=== PATIENT | male | born 1940 | race Caucasian/White ===

== ENCOUNTER 2018-02-18 11:33 | Inpatient (IN) ==
--- NOTE | 2018-02-18 12:24 | ED ---
HPI General Chief Complaint: Syncope Stated Complaint: Evac/Respiratory Time Seen by Provider: 02/18/18 11:53 Source: patient, EMS, RN notes reviewed and old records reviewed Mode of arrival: EMS Limitations: no limitations History of Present Illness HPI Narrative: 77 year old male presents to the emergency department via EMS for evaluation of dizziness, hypotension, low oxygen saturations, possible syncope. Patient was at cardiac rehab. He states that he woke up this morning burping so he did not take his morning medications or eat. He went to cardiac rehab and felt more weak than normal. He lifted weights and then went on the treadmill. While on the treadmill, he felt weak and tired so he quit. He went to the locker room where he felt dizzy and more weak. He vomited. EMS states that he did not have a syncopal episode, but the patient is unsure. The staff at cardiac rehab gave him glucose pills but did not check his glucose. He does not have any history of diabetes. When EMS arrived, he was hypotensive with bp 70s/40s and hypoxic at 86% on room air. The patient was given NS 500 ml bolus via EMS. Patient has history of pacemaker, [place], CAD, hypertension, CHF. He denies any headache, visual changes, chest pain, SOB. He denies any weakness at this time. Moderate severity. 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 complaint: dizziness, lightheadedness, near syncope and other (?syncope) Onset (ago): minute(s) Timing: gradual onset Description: lightheadedness History of similar episodes: No History of trauma: No Severity: moderate Relieving factors: rehydration Exacerbating factors: exertion Associated symptoms: denies other symptoms Related Data Home Medications Medication Instructions Recorded Confirmed amiodarone 200 mg PO DAILY 02/18/18 02/18/18 aspirin 81 mg PO DAILY 02/18/18 02/18/18 carvedilol 25 mg PO BID 02/18/18 02/18/18 enalapril maleate 20 mg PO BID 02/18/18 02/18/18 pravastatin 40 mg PO DAILY 02/18/18 02/18/18 Allergies Allergy/AdvReac Type Severity Reaction Status Date / Time gemfibrozil Allergy Severe hives Verified 02/18/18 15:32 Review of Systems ROS: all other systems reviewed are negative [facility] Medical History Medical History High cholesterol (Acute) Pacemaker (Acute) Surgical History Surgical History Stented coronary artery (Acute) Social History Social History Substance History: No History of Abuse Smoking Status: Never smoker How Often Do You Have a Drink Containing Alcohol: Never Recent Travel in [facility] within the Last 8 Weeks: No Recent Out of Country Travel within the Last 8 Weeks: No Immunization History Tetanus Immunization: Unsure Exam Narrative Exam Narrative: GENERAL: Well-nourished, well-developed male patient, ambulatory. Afebrile. SKIN: Focused skin assessment warm/dry. HEAD: Normocephalic. Atraumatic. ENT: Mucosa pink and moist. No erythema or exudates. No uvular edema. No uvular , palatal, or tonsillar deviation. Airway patent. Nasal turbinates appear normal without nasal blood, purulent drainage or septal hematoma. Bilateral tympanic membranes clear without erythema or perforation. EYES: No scleral icterus. No injection or drainage. PERRLA. NECK: Supple, trachea midline. No JVD or lymphadenopathy. CARDIOVASCULAR: Regular rate and rhythm without murmurs, gallops, or rubs. Bilateral radial and pedal pulses are 2+ RESPIRATORY: Breath sounds equal bilaterally. No accessory muscle use. Lung sounds are clear to auscultation GASTROINTESTINAL: Abdomen soft, non-tender, nondistended. MUSCULOSKELETAL: No cyanosis, or edema. Bilateral upper and lower extremity strength 5/5. All extremities are neurovascularly intact BACK: Nontender without obvious deformity. No CVA tenderness. NEUROLOGICAL: Awake and alert. Cranial nerves II through XII intact. Motor and sensory grossly within normal limits. Five out of 5 muscle strength in all muscle groups. Normal speech. Finger to nose is normal bilaterally. Heel to tobar is normal bilaterally. Course Initial Documented Vital Signs Temperature 97.5 F L 02/18/18 11:59 Pulse Rate 60 02/18/18 11:59 Respiratory Rate 19 02/18/18 11:59 Blood Pressure 119/54 L 02/18/18 11:59 Pulse Oximetry 96 02/18/18 11:59 Last Documented Vital Signs Temperature 97.5 F L 02/18/18 11:59 Pulse Rate 61 02/18/18 16:25 Respiratory Rate 19 02/18/18 16:25 Blood Pressure 124/59 L 02/18/18 16:25 Pulse Oximetry 97 02/18/18 16:25 Medical Decision Making STEFAN Attestation STEFAN supervised visit: Yes Attestation: I, Dr. Chambers, have reviewed the advance practice practitioner's documentation and am in agreement, met with the patient face to face, made the diagnosis, and the medical decision making was done by me. *My assessment and Findings: Patient seen and evaluated with PA, please see PA notes for further details. EKG shows a paced rhythm, otherwise did not show any signs of significant dysrhythmias currently. Lab work shows elevated BUN and creatinine. Chest x-ray did not show any signs of acute pulmonary processes. D-dimer is elevated as well and PE study has been ordered for the patient. He was fairly hypotensive on initial exam, IV fluids have been given. And at this point, considering his cardiac history, plan would be to admit him for further treatment. MDM Narrative Medical decision making narrative: 77-year-old male presents to the emergency department from cardiac rehab after lightheadedness, hypotension, hypoxia, possible syncope. He does state that he feels much better at this time. He is currently on 4 L O2 nasal cannula. EKG, CBC, CMP, magnesium, CK, troponin, PTT , PT/INR, d-dimer, UA, chest x-ray, CT the brain are ordered and pending. Patient is given Zofran 4 mg IV, NS 500 ml bolus. EKG shows AV paced rhythm, HR 60. CBC shows normal WBC of 7.7, Hgb of 13.4, Hct of 39.8, neut % of 81.5. CMP shows elevated BUN of 31, creatinine of 2.13. I don't have any recent labs to compare this with, hyperglycemia of 151. Magnesium is 1.9. CK is 57. Troponin is 0.05. BNP is 108. PTT is 22.8. PT/ INR is 12.1/1.2. D-dimer is 1.06. UA is negative for acute infection. Chest x -ray shows no acute cardiopulmonary process. CT of the brain is unremarkable. VQ scan is ordered and is negative. Patient will be admitted. Dr. Khan accepted admission. Medical Screen Exam Complete: Yes Emergency Medical Condition: Yes Differential Diagnosis Differential Diagnosis: ACS vs. dehydration vs. electrolyte abnormality vs. pneumonia vs. CHF exacerbation vs. sepsis vs. CVA vs. TIA vs. PE Medical Records Medical records reviewed: Yes I reviewed the patient's medical records. Lab Data Lab results reviewed: Yes I reviewed the patient's lab results. Result diagrams: 02/18/18 12:20 02/18/18 12:20 Lab Results 02/18/18 02/18/18 02/18/18 Range/Units 12:20 12:20 12:20 WBC 7.7 (4.0-11.0) th/mm3 RBC 4.05 L (4.50-5.90) mil/mm3 Hgb 13.4 (13.0-17.0) gm/dL Hct 39.8 (39.0-51.0) % MCV 98.4 (80.0-100.0) fL MCH 33.1 (27.0-34.0) pg MCHC 33.6 (32.0-36.0) % RDW 13.4 (11.6-17.2) % Plt Count 188 (150-450) th/mm3 MPV 9.2 (7.0-11.0) fL Neut % (Auto) 81.5 H (16.0-70.0) % Lymph % (Auto) 13.2 (9.0-44.0) % [place] % (Auto) 4.6 (0.0-8.0) % Eos % (Auto) 0.3 (0.0-4.0) % Baso % (Auto) 0.4 (0.0-2.0) % Neut # (Auto) 6.3 (1.8-7.7) th/mm3 Lymph # (Auto) 1.0 (1.0-4.8) th/mm3 [place] # (Auto) 0.4 (0.0-0.9) th/mm3 Eos # (Auto) 0.0 (0.0-0.4) th/mm3 Baso # (Auto) 0.0 (0.0-0.2) th/mm3 WBC Differential . Differential Comment Auto diff final PT 12.1 H (9.8-11.6) sec INR 1.2 Ratio APTT 22.8 L (24.3-30.1) sec D-Dimer Quant (PE/DVT) (0.00-0.50) mg/L FEU Sodium 142 (136-145) meq/L Potassium 4.5 (3.5-5.1) meq/L Chloride 111 H (98-107) meq/L Carbon Dioxide 22.3 (21.0-32.0) meq/L Anion Gap 9 (5-15) meq/L BUN 31 H (7-18) mg/dL Creatinine 2.13 H (0.60-1.30) mg/dL Estimated GFR 30 L (>89) mL/min Random Glucose 151 H (74-106) mg/dL Calcium 7.6 L (8.5-10.1) mg/dL Magnesium 1.9 (1.5-2.5) mg/dL Total Bilirubin 0.6 (0.2-1.0) mg/dL AST 20 (15-37) U/L ALT 26 (12-78) U/L Alkaline Phosphatase 62 (45-117) U/L Total Creatine Kinase 57 (39-308) U/L Troponin I 0.05 (0.02-0.05) ng/mL B-Natriuretic Peptide (0-100) pg/mL Total Protein 6.2 L (6.4-8.2) g/dL Albumin 3.1 L (3.4-5.0) g/dL Urine Color (Yellw/Straw) Urine Clarity (Clear) Urine pH (5.0-8.5) Ur Specific [place] (1.002-1.035) Urine Protein (Neg-Trace) mg/dL Urine Glucose (UA) (Negative) mg/dL Urine Ketones (Negative) mg/dL Urine Occult Blood (Negative) Urine Nitrate (Negative) Urine Bilirubin (Negative) Urine Urobilinogen (Less than 2) mg/dL Ur Leukocyte Esterase (Negative) Urine RBC (0-3) /hpf Urine WBC (0-5) /hpf Ur Squamous Epith Cells (0-5) /hpf Hyaline Casts (0-3) /lpf Urine Mucus (Occasional) /lpf Micro UA Comment Ur Microscopic Review Urine Culture Comments 02/18/18 02/18/18 02/18/18 Range/Units 12:20 12:20 12:32 WBC (4.0-11.0) th/mm3 RBC (4.50-5.90) mil/mm3 Hgb (13.0-17.0) gm/dL Hct (39.0-51.0) % MCV (80.0-100.0) fL MCH (27.0-34.0) pg MCHC (32.0-36.0) % RDW (11.6-17.2) % Plt Count (150-450) th/mm3 MPV (7.0-11.0) fL Neut % (Auto) (16.0-70.0) % Lymph % (Auto) (9.0-44.0) % [place] % (Auto) (0.0-8.0) % Eos % (Auto) (0.0-4.0) % Baso % (Auto) (0.0-2.0) % Neut # (Auto) (1.8-7.7) th/mm3 Lymph # (Auto) (1.0-4.8) th/mm3 [place] # (Auto) (0.0-0.9) th/mm3 Eos # (Auto) (0.0-0.4) th/mm3 Baso # (Auto) (0.0-0.2) th/mm3 WBC Differential Differential Comment PT (9.8-11.6) sec INR Ratio APTT (24.3-30.1) sec D-Dimer Quant (PE/DVT) 1.06 H (0.00-0.50) mg/L FEU Sodium (136-145) meq/L Potassium (3.5-5.1) meq/L Chloride (98-107) meq/L Carbon Dioxide (21.0-32.0) meq/L Anion Gap (5-15) meq/L BUN (7-18) mg/dL Creatinine (0.60-1.30) mg/dL Estimated GFR (>89) mL/min Random Glucose (74-106) mg/dL Calcium (8.5-10.1) mg/dL Magnesium (1.5-2.5) mg/dL Total Bilirubin (0.2-1.0) mg/dL AST (15-37) U/L ALT (12-78) U/L Alkaline Phosphatase (45-117) U/L Total Creatine Kinase (39-308) U/L Troponin I (0.02-0.05) ng/mL B-Natriuretic Peptide 108 H (0-100) pg/mL Total Protein (6.4-8.2) g/dL Albumin (3.4-5.0) g/dL Urine Color Yellow (Yellw/Straw) Urine Clarity Hazy H (Clear) Urine pH 6.0 (5.0-8.5) Ur Specific [place] 1.019 (1.002-1.035) Urine Protein 30 H (Neg-Trace) mg/dL Urine Glucose (UA) Negative (Negative) mg/dL Urine Ketones Negative (Negative) mg/dL Urine Occult Blood Negative (Negative) Urine Nitrate Negative (Negative) Urine Bilirubin Negative (Negative) Urine Urobilinogen 2.0 H (Less than 2) mg/dL Ur Leukocyte Esterase Negative (Negative) Urine RBC 2 (0-3) /hpf Urine WBC 2 (0-5) /hpf Ur Squamous Epith Cells <1 (0-5) /hpf Hyaline Casts 16 (0-3) /lpf Urine Mucus Few H (Occasional) /lpf Micro UA Comment Culture not ind Ur Microscopic Review Not Reportable Urine Culture Comments Culture not ind Imaging Data Attestation: I personally reviewed and interpreted this imaging study as follows : Radiologist's impression: Chest X-Ray 02/18/18 12:10 CONCLUSION: No acute cardiopulmonary process. Head CT 02/18/18 12:10 CONCLUSION: Unremarkable study. Pulmonary Perfusion Imaging 02/18/18 13:36 CONCLUSION: 1. Negative examination. Discharge Plan Discharge Disposition Patient Disposition: 30 Still Patient Discharge Details Diagnosis: Syncope Physicians Team ED Provider: Fanny Chambers ED Midlevel Provider: Milagro Mcgraw Primary Care Provider: Shola Koch Attending Provider: Marcio Khan Status ED Status: Admitted Observation Patient
[2018-02-18 12:39] LABS: Baso % (Auto) 0.4 % (0.0-2.0); Eos % (Auto) 0.3 % (0.0-4.0); Hematocrit 39.8 % (39.0-51.0); Hemoglobin 13.4 gm/dL (13.0-17.0); Lymph % (Auto) 13.2 % (9.0-44.0); Mean Corpuscular HGB Conc 33.6 % (32.0-36.0); Mean Corpuscular Hemoglobin 33.1 pg (27.0-34.0); Mean Corpuscular Volume 98.4 fL (80.0-100.0); Mean Platelet Volume 9.2 fL (7.0-11.0); Mono # (Auto) 0.4 th/mm3 (0.0-0.9); Mono % (Auto) 4.6 % (0.0-8.0); Neut # (Auto) 6.3 th/mm3 (1.8-7.7); Neut % (Auto) 81.5 % (16.0-70.0); Platelet Count 188 th/mm3 (150-450); Red Blood Count 4.05 mil/mm3 (4.50-5.90); Red Cell Distribution Width 13.4 % (11.6-17.2); White Blood Count 7.7 th/mm3 (4.0-11.0)
[2018-02-18 12:54] LABS: Activated Partial Thrombo Time 22.8 sec (24.3-30.1); INR 1.2 Ratio; Prothrombin Time 12.1 sec (9.8-11.6)
[2018-02-18 12:58] LABS: Alanine Aminotransferase 26 U/L (12-78)
[2018-02-18 13:04] LABS: Albumin 3.1 g/dL (3.4-5.0); Alkaline Phosphatase 62 U/L (45-117); Anion Gap 9 meq/L (5-15); Aspartate Aminotransferase 20 U/L (15-37); Blood Urea Nitrogen 31 mg/dL (7-18); Calcium 7.6 mg/dL (8.5-10.1); Carbon Dioxide 22.3 meq/L (21.0-32.0); Chloride 111 meq/L (98-107); Glomerular Filtration Rate 30 mL/min (>89); Glucose,Random 151 mg/dL (74-106); Magnesium 1.9 mg/dL (1.5-2.5); Potassium 4.5 meq/L (3.5-5.1); Sodium 142 meq/L (136-145); Total Protein 6.2 g/dL (6.4-8.2); Troponin I 0.05 ng/mL (0.02-0.05)
--- NOTE | 2018-02-18 13:04 | XR ---
EXAM DATE: 02/18/2018 12:47 PM EDT AGE/SEX: 77 years / Male INDICATIONS: Shortness of breath, dizziness, vomiting. CLINICAL DATA: This is the patient's initial encounter. Patient reports that signs and symptoms have been present for 1 day and indicates a pain score of 0/10. MEDICAL/SURGICAL HISTORY: . Myocardial infarctions. Pacemaker. Cardiac stents. COMPARISON: No prior exams available for comparison. FINDINGS: There is a pacing device seen in the left chest. The heart size is normal. The lungs are grossly rebecca r. CONCLUSION: No acute cardiopulmonary process. Electronically signed by: Mikey Ball MD 02/18/2018 1:03 PM EDT
[2018-02-18 13:06] LABS: Creatine Kinase 57 U/L (39-308)
[2018-02-18 13:06] LABS: Bilirubin,Urine Negative (Negative); Clarity,Urine Hazy (Clear); Color,Urine Yellow (Yellw/Straw); Glucose,Urine (UA) Negative (Negative); Hyaline Casts,Urine 16 /lpf (0-3); Leukocyte Esterase,Urine Negative (Negative); Mucus,Urine Few /lpf (Occasional); Nitrite,Urine Negative (Negative); Specific Gravity,Urine 1.019 (1.002-1.035); Squamous Epithelial Cell,Urine <1 /hpf (0-5)
--- NOTE | 2018-02-18 13:21 | CT ---
EXAM DATE: 02/18/2018 1:14 PM EDT AGE/SEX: 77 years / Male INDICATIONS: Syncopal episode while working out. Hypotensive. CLINICAL DATA: This is the patient's initial encounter. Patient reports that signs and symptoms have been present for 1 day and indicates a pain score of 0/10. MEDICAL/SURGICAL HISTORY: None. Coronary artery stent. Pacemaker. RADIATION DOSE: 34.77 CTDI (mGy) COMPARISON: No prior exams available for comparison. TECHNIQUE: CT of the head without contrast. Using automated exposure control and adjustment of the mA and/or kV according to patient size, radiation dose was kept as low as reasonably achievable to ob tain optimal diagnostic quality images. DICOM format image data is available electronically for revi ew and comparison. FINDINGS: There is no evidence for intracranial hemorrhage, mass effect, mass lesions, edema, or extr a-axial fluid collections. The visualized bony structures appear intact. The ventricles are normal size for the patient's age. There are no signs of acute infarction for technique. CONCLUSION: Unremarkable study. Electronically signed by: Christian Victoria MD 02/18/2018 1:20 PM EDT
[2018-02-18] MEDS ORDERED: Sodium Chlor 0.9% Inj 500 ML IV.SIG ONE (13:36)
--- NOTE | 2018-02-18 15:32 | NM ---
EXAM DATE: 02/18/2018 3:24 PM EDT AGE/SEX: 77 years / Male INDICATIONS: Dizziness, nausea and near syncope. Hypotensive and hypoxic. CLINICAL DATA: This is the patient's initial encounter. Patient reports that signs and symptoms have been present for 1 day and indicates a pain score of 0/10. MEDICAL/SURGICAL HISTORY: Hypercholesterolemia. Pacemaker. Coronary artery stent. COMPARISON: [facility], CHEST 1V SINGLE AP, 02/18/2018. . DOSE: 0.97 mCi Tc99m DTPA aerosol 8.8 mCi Tc99m MAA IV TECHNIQUE: Following five minutes of tidal breathing of DTPA aerosol, planar images of the lungs wer e performed in eight projections. The patient was then injected with MAA, and eight-view perfusion s can was performed. FINDINGS: There is a homogeneous pattern of aerosol delivery to the periphery of both lungs. No focal ventilat ory defects are seen. The perfusion lung scan demonstrates a homogenous pattern of uptake in both lungs. No segmental or s ubsegmental defects are seen. CONCLUSION: 1. Negative examination. Electronically signed by: Christian Victoria MD 02/18/2018 3:31 PM EDT
[2018-02-18] MEDS ORDERED: Acetaminophen 325 MG Tablet PO PRN (16:15)
--- NOTE | 2018-02-18 16:15 | P.HPIM ---
History of Present Illness Primary Care Physician: Shola Koch MD Chief Complaint: Syncope/near syncope History of Present Illness: Mr. Hidalgo is a pleasant 77 y/o WM with CHF, ischemic cardiomyopathy s/p AICD , paroxysmal A. fib, CKD, stage 3, CAD with hx of HI. He presented to the ED at [facility] on 02/18/18 for evaluation of dizziness, hypotension, low oxygen saturations , and possible syncope. This morning he had some increased belching and bloating sensation after waking up and he decided not to eat any breakfast and did not take his medications this morning. Patient went to cardiac rehab this morning despite feeling more weak than normal. He states that when he arrived at cardiac rehab his BP was 122/64. He lifted weights and then went on the treadmill for about 25 minutes but did feel weak and tired so he quit. He went to the locker room where he felt dizzy and more weak and he vomited. Pt thinks he may have passed out but it is not clear. When EMS arrived, he was reportedly hypotensive with BP in the 70s/40s and hypoxic at 86% on room air. The patient was given NS 500 ml bolus via EMS and started on supplemental O2 at 6L. Per the ED documentation, the EMS stated that he did not have a syncopal episode, but the patient is unsure. The staff at cardiac rehab gave him glucose pills but did not check his glucose. He does not have any history of diabetes, his last Hgb A1C was 5.3% in 10/2017. He denies any headache, visual changes, chest pain , SOB. He occasionally gets some lightheadedness. He has last approximately 45lbs over the last year to year in a half, intentionally, and his started on weight watchers. He typically does drink a lot of liquids but did not eat or drink anything today. He has not had any recent changes in his urination. He does report that he used Sildenafil last night. He typically uses that about once per month but has not reported any issues taking that in the past and his BP when he arrived at cardiac rehab was stable this morning per the pt. In the ED pt had a Head CT which was negative. His Cr seems to be a bit higher than baseline. He has not had much of anything to eat or drink to but pt reports that normally he drinks plenty of fluids. Pt was given another 500mL of NS in the ED. His BP is currently stable with systolic in the 110's. His O2 sats have remained stable but pt is on 4L of supplemental O2. He does not typically use any supplemental O2 at home. CXR in the ED with no acute cardiopulmonary process per radiologist reading. A VQ scan was performed in the ED which was negative as well. Past Medical Hx: CHF CKD, stage 3(Cr 1.63/BUN 19, GFR 96 in 10/2017) Ischemic Cardiomyopathy, ED 25-30% in 2013 CAD with hx of HI LBBB Paroxysmal A. fib Paroxysmal V. fib/V. tach Hx of colon polyps Past Surgical Hx: Dual chambered AICD placement in 2007 PTCA with stent placement in LAD in 2003 Angioplasty of RCA in 2002 Family Hx: Father at age 87, hx of prostate cancer Mother at age 78, HTN and CAD Sister at age 55, hx of brain CA Social Hx: Remote hx of tobacco use in high school Denies any alcohol or illicit drug use Pt is , he has three adult children Pt is originally from [place], moved to [place] in 1996. - Diagnosis (1) Syncope (2) Hypoxia (3) Hypotension (4) Acute renal failure superimposed on stage 3 chronic kidney disease (5) Ischemic cardiomyopathy (6) CHF (congestive heart failure) (7) CAD (coronary artery disease) (8) Paroxysmal A-fib Review of Systems Constitutional: Reports weight loss, Denies chills, Denies fever(s), Denies headache(s), Denies night sweats Eyes: Denies double vision, Denies loss of vision Ears, Nose, Mouth, and Throat: Denies dizziness, Denies headache(s), Denies sore throat Cardiovascular: Denies chest pain, Denies generalized swelling, Denies shortness of breath Respiratory: Reports cough, Denies shortness of breath, Denies wheezing Gastrointestinal: Reports belching, Reports bloating, Reports vomiting, Denies abdominal pain, Denies constipation, Denies loose stools Genitourinary: Denies urinary incontinence, Denies urinary urgency Musculoskeletal: Denies back pain, Denies joint pain Skin/Breast: Denies rash Neurologic: Denies confusion, Denies dizziness, Denies headache(s), Denies memory loss, Denies convulsions, Denies tingling/numbness/burning sensations Psychiatric: Denies anxiety, Denies depression PMFSH - History History Provided By: Patient - Medical History Medical History: Medical History (Last Updated 02/18/18 @ 11:58 by Arielle Stewart RN) High cholesterol Pacemaker - Surgical History Surgical History: Surgical History (Last Updated 02/18/18 @ 11:58 by Arielle Stewart RN) Stented coronary artery - Tobacco History Smoking Status: Never smoker - Alcohol History How Often Do You Have a Drink Containing Alcohol: Never - Substance Use History Substance History: No History of Abuse - Travel History Recent Travel in the [place] Within the Last 8 Weeks: No Recent Travel Out of the Country Within the Last 8 Weeks: No - Immunization History Tetanus Immunization: Unsure Medications and Allergies Allergies Allergy/AdvReac Type Severity Reaction Status Date / Time gemfibrozil Allergy Severe hives Verified 02/18/18 15:32 Home Medications Medication Instructions Recorded Confirmed Type amiodarone 200 mg PO DAILY 02/18/18 02/18/18 History aspirin 81 mg PO DAILY 02/18/18 02/18/18 History carvedilol 25 mg PO BID 02/18/18 02/18/18 History enalapril maleate 20 mg PO BID 02/18/18 02/18/18 History pravastatin 40 mg PO DAILY 02/18/18 02/18/18 History Exam Vital signs: Vital Signs 02/18/18 11:59 02/18/18 12:10 02/18/18 13:02 Temperature 97.5 F L Pulse Rate 60 60 Respiratory Rate 19 17 Blood Pressure 119/54 L 112/57 L Pulse Oximetry 96 95 95 Intake & Output 02/17/18 02/18/18 02/18/18 18:59 06:59 18:59 Weight 70.76 kg Narrative: GENERAL: NAD, AAOx3 SKIN: Warm and dry. HEENT: Atraumatic. Normocephalic. Pupils equal and round. No scleral icterus. No injection or drainage. No nasal bleeding or discharge. Mucous membranes pink and moist. NECK: Trachea midline. No JVD. CARDIO: Regular rate and rhythm. RESP: Rhonchi bilaterally which seemed to clear with coughing. Breath sounds equal bilaterally. ABD: +BS, soft, non-tender, nondistended. EXT: Extremities without clubbing, cyanosis, or edema. No obvious deformities. NEURO: Awake and alert. No obvious cranial nerve deficits. Motor grossly within normal limits. Five out of 5 muscle strength in the arms and legs. Normal speech. PSYCHIATRIC: Appropriate mood and affect; insight and judgment normal. Results - Labs CBC & Chem 7: 02/18/18 12:20 02/18/18 12:20 Labs: Short CBC 02/18/18 Range/Units 12:20 WBC 7.7 (4.0-11.0) th/mm3 Hgb 13.4 (13.0-17.0) gm/dL Hct 39.8 (39.0-51.0) % Plt Count 188 (150-450) th/mm3 BMP 02/18/18 12:20 Sodium 142 Potassium 4.5 Chloride 111 H Carbon Dioxide 22.3 BUN 31 H Creatinine 2.13 H Calcium 7.6 L Cardiac Enzymes 02/18/18 Range/Units 12:20 Total Creatine Kinase 57 (39-308) U/L Troponin I 0.05 (0.02-0.05) ng/mL Liver Function 02/18/18 Range/Units 12:20 Total Bilirubin 0.6 (0.2-1.0) mg/dL AST 20 (15-37) U/L ALT 26 (12-78) U/L Alkaline Phosphatase 62 (45-117) U/L Albumin 3.1 L (3.4-5.0) g/dL Urine 02/18/18 Range/Units 12:32 Urine Color Yellow (Yellw/Straw) Urine Clarity Hazy H (Clear) Urine pH 6.0 (5.0-8.5) Ur Specific [place] 1.019 (1.002-1.035) Urine Protein 30 H (Neg-Trace) mg/dL Urine Glucose (UA) Negative (Negative) mg/dL - Imaging Impressions Chest X-Ray 02/18/18 12:10 CONCLUSION: No acute cardiopulmonary process. Head CT 02/18/18 12:10 CONCLUSION: Unremarkable study. Pulmonary Perfusion Imaging 02/18/18 13:36 CONCLUSION: 1. Negative examination. Caprini VTE Risk Assessment Caprini VTE Risk Assessment: Moderate/High Risk (score >= 2) Caprini Risk Assessment Model: Point Value = 1 Point Value = 2 Point Value = 3 Point Value = 5 Age 41-60 Minor surgery BMI > 25 kg/m2 Swollen legs Varicose veins or History of unexplained or recurrent spontaneous Oral contraceptives or hormone replacement Sepsis (< 1 month) Serious lung disease, including pneumonia (< 1 month) Abnormal pulmonary function Acute myocardial infarction Congestive heart failure (< 1 month) History of inflammatory bowel disease Medical patient at bed rest Age 61-74 Arthroscopic surgery Major open surgery (> 45 min) Laparoscopic surgery (> 45 min) Malignancy Confined to bed (> 72 hours) Immobilizing plaster cast Central venous access Age >= 75 History of VTE Family history of VTE Factor V Leiden Prothrombin [id number] Lupus anticoagulant Anticardiolipin antibodies Elevated serum homocysteine Heparin-induced thrombocytopenia Other congenital or acquired thrombophilia Stroke (< 1 month) Elective arthroplasty Hip, pelvis, or leg fracture Acute spinal cord injury (< 1 month) Prophylaxis Regimen: Total Risk Factor Score Risk Level Prophylaxis Regimen 0-1 Low Early ambulation 2 Moderate Order ONE of the following: *Sequential Compression Device (SCD) *Heparin 5000 units SQ BID 3-4 Higher Order ONE of the following medications: *Heparin 5000 units SQ TID *Enoxaparin/Lovenox 40 mg SQ daily (WT < 150 kg, CrCl > 30 mL/min) *Enoxaparin/Lovenox 30 mg SQ daily (WT < 150 kg, CrCl > 10-29 mL/min) *Enoxaparin/Lovenox 30 mg SQ BID (WT < 150 kg, CrCl > 30 mL/min) AND/OR *Sequential Compression Device (SCD) 5 or more Highest Order ONE of the following medications: *Heparin 5000 units SQ TID (Preferred with Epidurals) *Enoxaparin/Lovenox 40 mg SQ daily (WT < 150 kg, CrCl > 30 mL/min) *Enoxaparin/Lovenox 30 mg SQ daily (WT < 150 kg, CrCl > 10-29 mL/min) *Enoxaparin/Lovenox 30 mg SQ BID (WT < 150 kg, CrCl > 30 mL/min) AND *Sequential Compression Device (SCD) Assessment and Plan - Assessment (1) Syncope Code(s): R55 - Syncope and collapse Status: Acute Plan: Syncope Hypotension - Pt is a 77 y/o WM with CHF, ischemic cardiomyopathy s/p AICD, paroxysmal A. fib, CKD, stage 3, CAD with hx of HI. - He presented to the ED at [facility] on 02/18/18 for evaluation of dizziness, hypotension, hypoxia, and possible syncope. This morning he had some increased belching and bloating sensation after waking up and he decided not to eat any breakfast and did not take his medications this morning. Patient went to cardiac rehab this morning despite feeling more weak than normal. He states that when he arrived at cardiac rehab his BP was 122/64. He lifted weights and then went on the treadmill for about 25 minutes but did feel weak and tired so he quit. He went to the locker room where he felt dizzy and more weak and he vomited. Pt thinks he may have passed out but it is not clear. When EMS arrived , he was reportedly hypotensive with BP in the 70s/40s and hypoxic at 86% on room air. The patient was given NS 500 ml bolus via EMS and started on supplemental O2 at 6L. - Head CT which was negative. - Keep pt on telemetry - Consult pts [employer], Dr. Tate, pt reports that in the past when he has had HI he has had syncopal episodes - Trend CE and EKGs - His BP is currently stable with systolic in the 110's. - We will resume home meds in the AM but at half doses on his Coreg and Enalapril with parameters to hold - Supportive care - DVT prophylaxis with SCDs Acute on CKD, stage 3 - Cr seems to be a bit higher than baseline (Cr 1.63/BUN 19, GFR 96 in 10/2017). - He has not had much of anything to eat or drink to but pt reports that normally he drinks plenty of fluids. - Pt was given 500mL fluid bolus by EMS and another 500mL of NS in the ED. - Given his hx of CHF and low EF we will not continue any further IVF but encouraged oral intake of fluids - Repeat labs in AM Hypoxia - Etiology unclear - His O2 sats have remained stable but pt is on 4L of supplemental O2. He does not typically use any supplemental O2 at home. - CXR in the ED with no acute cardiopulmonary process per radiologist reading. - VQ scan was performed in the ED which was negative as well. - Pt with a reported cough for the last 1-2 weeks but not bringing up any phlegm. On Exam he had some rhonchi that seemed to clear with coughing. - Repeat CXR in AM CAD with hx of HI CHF, EF 25-30% in 2013 Ischemic Cardiomyopathy - Home meds to be resumed, BB and DEREK resumed at lower doses - Pt with intentional weight loss so his medication requirements have changed. (2) Hypoxia Code(s): R09.02 - Hypoxemia Status: Acute (3) Hypotension Code(s): I95.9 - Hypotension, unspecified Status: Acute (4) Acute renal failure superimposed on stage 3 chronic kidney disease Code(s): N17.9 - Acute kidney failure, unspecified; N18.3 - Chronic kidney disease, stage 3 (moderate) Status: Acute (5) Ischemic cardiomyopathy Code(s): I25.5 - Ischemic cardiomyopathy Status: Chronic (6) CHF (congestive heart failure) Code(s): I50.9 - Heart failure, unspecified Status: Chronic (7) CAD (coronary artery disease) Code(s): I25.10 - Atherosclerotic heart disease of [place] coronary artery without angina pectoris Status: Chronic (8) Paroxysmal A-fib Code(s): I48.0 - Paroxysmal atrial fibrillation Status: Chronic
[2018-02-18 20:09] LABS: Troponin I 0.05 ng/mL (0.02-0.05)
[2018-02-18] MEDS: Senna/Docusate Sodium 8.6/50 MG Tablet PO SCH (20:35)
[2018-02-19 00:55] LABS: Troponin I 0.04 ng/mL (0.02-0.05)
--- NOTE | 2018-02-19 08:33 | P.PNIM ---
Subjective Interval history: Pt has been weaned off supplemental O2 and is saturating well on RA His BP remains low overnight with systolic in the 70-80s He reports that he is drinking fluids Pt has been able to ambulate to the bathroom without any dizziness or lightheadedness Denies any chest pain, SOB or palpitations. Physical Exam Vital signs: Vital Signs 02/18/18 11:59 02/18/18 12:10 02/18/18 13:02 Temperature 97.5 F L Pulse Rate 60 60 Respiratory Rate 19 17 Blood Pressure 119/54 L 112/57 L Pulse Oximetry 96 95 95 02/18/18 16:25 02/18/18 18:23 02/18/18 19:22 Temperature Pulse Rate 61 60 59 L Respiratory Rate 19 22 16 Blood Pressure 124/59 L 98/51 L 98/53 L Pulse Oximetry 97 98 98 02/18/18 20:00 02/18/18 23:54 02/19/18 00:59 Temperature 98.2 F 98.7 F Pulse Rate 60 60 Respiratory Rate 22 23 Blood Pressure 88/49 L 77/40 L 94/48 L Pulse Oximetry 94 L 93 L 02/19/18 01:35 02/19/18 04:00 02/19/18 04:30 Temperature 98.5 F Pulse Rate 60 Respiratory Rate 20 Blood Pressure 81/46 L 78/40 L Pulse Oximetry 93 L 96 02/19/18 08:00 Temperature 98.6 F Pulse Rate 60 Respiratory Rate 16 Blood Pressure 109/58 L Pulse Oximetry 95 Intake & Output 02/18/18 02/19/18 02/19/18 18:59 06:59 18:59 Intake Total 500 / 500 Balance 500 / 500 Weight 70.76 kg Intake: IV 500 / 500 Other: Date of Last Bowel Movement 02/18/18 Narrative: General: NAD, AAox3 Chest: Crackles at the bases bilaterally Cardiac: Regular Abd: +BS, soft ND/NT Ext: No edema Results - Labs CBC & Chem 7: 02/18/18 12:20 02/18/18 12:20 Laboratory Results - last 24 hr 02/18/18 02/18/18 02/18/18 12:20 12:20 12:20 WBC 7.7 RBC 4.05 L Hgb 13.4 Hct 39.8 MCV 98.4 MCH 33.1 MCHC 33.6 RDW 13.4 Plt Count 188 MPV 9.2 Neut % (Auto) 81.5 H Lymph % (Auto) 13.2 [place] % (Auto) 4.6 Eos % (Auto) 0.3 Baso % (Auto) 0.4 Neut # (Auto) 6.3 Lymph # (Auto) 1.0 [place] # (Auto) 0.4 Eos # (Auto) 0.0 Baso # (Auto) 0.0 WBC Differential . Differential Comment Auto diff final PT 12.1 H INR 1.2 APTT 22.8 L D-Dimer Quant (PE/DVT) Sodium 142 Potassium 4.5 Chloride 111 H Carbon Dioxide 22.3 Anion Gap 9 BUN 31 H Creatinine 2.13 H Estimated GFR 30 L Random Glucose 151 H Calcium 7.6 L Magnesium 1.9 Total Bilirubin 0.6 AST 20 ALT 26 Alkaline Phosphatase 62 Total Creatine Kinase 57 Troponin I 0.05 B-Natriuretic Peptide Total Protein 6.2 L Albumin 3.1 L Urine Color Urine Clarity Urine pH Ur Specific [place] Urine Protein Urine Glucose (UA) Urine Ketones Urine Occult Blood Urine Nitrate Urine Bilirubin Urine Urobilinogen Ur Leukocyte Esterase Urine RBC Urine WBC Ur Squamous Epith Cells Hyaline Casts Urine Mucus Micro UA Comment Ur Microscopic Review Urine Culture Comments 02/18/18 02/18/18 02/18/18 12:20 12:20 12:32 WBC RBC Hgb Hct MCV MCH MCHC RDW Plt Count MPV Neut % (Auto) Lymph % (Auto) [place] % (Auto) Eos % (Auto) Baso % (Auto) Neut # (Auto) Lymph # (Auto) [place] # (Auto) Eos # (Auto) Baso # (Auto) WBC Differential Differential Comment PT INR APTT D-Dimer Quant (PE/DVT) 1.06 H Sodium Potassium Chloride Carbon Dioxide Anion Gap BUN Creatinine Estimated GFR Random Glucose Calcium Magnesium Total Bilirubin AST ALT Alkaline Phosphatase Total Creatine Kinase Troponin I B-Natriuretic Peptide 108 H Total Protein Albumin Urine Color Yellow Urine Clarity Hazy H Urine pH 6.0 Ur Specific [place] 1.019 Urine Protein 30 H Urine Glucose (UA) Negative Urine Ketones Negative Urine Occult Blood Negative Urine Nitrate Negative Urine Bilirubin Negative Urine Urobilinogen 2.0 H Ur Leukocyte Esterase Negative Urine RBC 2 Urine WBC 2 Ur Squamous Epith Cells <1 Hyaline Casts 16 Urine Mucus Few H Micro UA Comment Culture not ind Ur Microscopic Review Not Reportable Urine Culture Comments Culture not ind 02/18/18 02/19/18 19:15 00:06 WBC RBC Hgb Hct MCV MCH MCHC RDW Plt Count MPV Neut % (Auto) Lymph % (Auto) [place] % (Auto) Eos % (Auto) Baso % (Auto) Neut # (Auto) Lymph # (Auto) [place] # (Auto) Eos # (Auto) Baso # (Auto) WBC Differential Differential Comment PT INR APTT D-Dimer Quant (PE/DVT) Sodium Potassium Chloride Carbon Dioxide Anion Gap BUN Creatinine Estimated GFR Random Glucose Calcium Magnesium Total Bilirubin AST ALT Alkaline Phosphatase Total Creatine Kinase 45 37 L Troponin I 0.05 0.04 B-Natriuretic Peptide Total Protein Albumin Urine Color Urine Clarity Urine pH Ur Specific [place] Urine Protein Urine Glucose (UA) Urine Ketones Urine Occult Blood Urine Nitrate Urine Bilirubin Urine Urobilinogen Ur Leukocyte Esterase Urine RBC Urine WBC Ur Squamous Epith Cells Hyaline Casts Urine Mucus Micro UA Comment Ur Microscopic Review Urine Culture Comments - Imaging Impressions Chest X-Ray 02/18/18 12:10 CONCLUSION: No acute cardiopulmonary process. Head CT 02/18/18 12:10 CONCLUSION: Unremarkable study. Pulmonary Perfusion Imaging 02/18/18 13:36 CONCLUSION: 1. Negative examination. Assessment and Plan - Assessment (1) Syncope Code(s): R55 - Syncope and collapse Status: Acute Plan: Syncope Hypotension - Pt is a 77 y/o WM with CHF, ischemic cardiomyopathy s/p AICD, paroxysmal A. fib, CKD, stage 3, CAD with hx of MT. - He presented to the ED at [facility] on 02/18/18 for evaluation of dizziness, hypotension, hypoxia, and possible syncope. This morning he had some increased belching and bloating sensation after waking up and he decided not to eat any breakfast and did not take his medications this morning. Patient went to cardiac rehab this morning despite feeling more weak than normal. He states that when he arrived at cardiac rehab his BP was 122/64. He lifted weights and then went on the treadmill for about 25 minutes but did feel weak and tired so he quit. He went to the locker room where he felt dizzy and more weak and he vomited. Pt thinks he may have passed out but it is not clear. When EMS arrived , he was reportedly hypotensive with BP in the 70s/40s and hypoxic at 86% on room air. The patient was given NS 500 ml bolus via EMS and started on supplemental O2 at 6L. - Head CT which was negative. - Telemetry - Consult pts Marketing Sales Manager, Dr. Tate, pt reports that in the past when he has had MT he has had syncopal episodes - CE trended flat - His BP overnight was low with systolic in the 70-90's. - Hold home meds this AM - Supportive care - DVT prophylaxis with SCDs Acute on CKD, stage 3 - Cr seems to be a bit higher than baseline (Cr 1.63/BUN 19, GFR 96 in 10/2017). - He has not had much of anything to eat or drink to but pt reports that normally he drinks plenty of fluids. - Pt was given 500mL fluid bolus by EMS and another 500mL of NS in the ED. - Given his hx of CHF and low EF we will not continue any further IVF but encouraged oral intake of fluids - Awaiting repeat labs this AM Hypoxia, resolved - Etiology unclear - Pt was able to be weaned off supplemental O2 during the night and is maintaining O2 sats on RA - CXR in the ED with no acute cardiopulmonary process per radiologist reading. - VQ scan was performed in the ED which was negative as well. - Pt with a reported cough for the last 1-2 weeks but not bringing up any phlegm. On Exam he had some rhonchi that seemed to clear with coughing. - Repeat CXR CAD with hx of MT CHF, EF 25-30% in 2013 Ischemic Cardiomyopathy - Home BP meds, had been resumed at lower doses but BP this morning too low for pt to receive meds - Pt with intentional weight loss so his medication requirements have changed. (2) Hypoxia Code(s): R09.02 - Hypoxemia Status: Acute (3) Hypotension Code(s): I95.9 - Hypotension, unspecified Status: Acute (4) Acute renal failure superimposed on stage 3 chronic kidney disease Code(s): N17.9 - Acute kidney failure, unspecified; N18.3 - Chronic kidney disease, stage 3 (moderate) Status: Acute (5) Ischemic cardiomyopathy Code(s): I25.5 - Ischemic cardiomyopathy Status: Chronic (6) CHF (congestive heart failure) Code(s): I50.9 - Heart failure, unspecified Status: Chronic (7) CAD (coronary artery disease) Code(s): I25.10 - Atherosclerotic heart disease of [place] coronary artery without angina pectoris Status: Chronic (8) Paroxysmal A-fib Code(s): I48.0 - Paroxysmal atrial fibrillation Status: Chronic
[2018-02-19 09:00] LABS: Baso % (Auto) 0.2 % (0.0-2.0); Eos % (Auto) 0.3 % (0.0-4.0); Hematocrit 36.3 % (39.0-51.0); Hemoglobin 12.2 gm/dL (13.0-17.0); Lymph % (Auto) 13.2 % (9.0-44.0); Mean Corpuscular HGB Conc 33.6 % (32.0-36.0); Mean Corpuscular Hemoglobin 32.5 pg (27.0-34.0); Mean Corpuscular Volume 96.8 fL (80.0-100.0); Mean Platelet Volume 9.1 fL (7.0-11.0); Mono % (Auto) 6.4 % (0.0-8.0); Neut # (Auto) 11.9 th/mm3 (1.8-7.7); Neut % (Auto) 79.9 % (16.0-70.0); Platelet Count 149 th/mm3 (150-450); Red Blood Count 3.75 mil/mm3 (4.50-5.90); Red Cell Distribution Width 13.5 % (11.6-17.2); White Blood Count 14.9 th/mm3 (4.0-11.0)
[2018-02-19] MEDS ORDERED: Carvedilol 12.5 MG Tablet PO SCH (09:00)
--- NOTE | 2018-02-19 09:15 | XR ---
EXAM DATE: 02/19/2018 9:11 AM EDT AGE/SEX: 77 years / Male INDICATIONS: Cough and shortness of breath. CLINICAL DATA: This is the patient's subsequent encounter. Patient reports that signs and symptoms h ave been present for 2 days and indicates a pain score of 0/10. MEDICAL/SURGICAL HISTORY: . Myocardial infarctions. Pacemaker. cardiac stents. COMPARISON: [facility] [place], CHEST 1V SINGLE AP, 02/18/2018. . FINDINGS: A single AP view of the chest demonstrates bibasilar patchy densities. Cardiomegaly. Left-sided defib rillator unchanged. The cardiomediastinal contours are unremarkable. Osseous structures are intact. CONCLUSION: Bibasilar patchy densities could be atelectasis or infiltrates Electronically signed by: Salvador Shah MD 02/19/2018 9:13 AM EDT
[2018-02-19 09:20] LABS: Calcium 8.1 mg/dL (8.5-10.1); Carbon Dioxide 25.2 meq/L (21.0-32.0)
[2018-02-19 10:15] LABS: Lymphocytes 15 % (9-44); Monocytes 3 % (0-8)
[2018-02-19 10:16] LABS: Platelet Estimate Normal (Normal); Platelet Morphology Normal (Normal)
[2018-02-19] MEDS: Senna/Docusate Sodium 8.6/50 MG Tablet PO SCH ×2 (10:56→20:42)
--- NOTE | 2018-02-19 11:07 | P.CONCA ---
History of Present Illness Service: [facility] cardiology Consult date: 02/19/18 Requesting Physician: Marcio hKan Reason for Consult: near syncope Primary Care Provider: Shola Koch MD Family Provider: Shola Koch MD Chief Complaint: Syncope/near syncope History of Present Illness: 77 y/o gentleman with CHF, ischemic cardiomyopathy s/p AICD, EF 25%, paroxysmal A. fib, CKD, stage 3, CAD with hx of [place]. He presented to the ED at [facility] [place] for evaluation of dizziness, hypotension, low oxygen saturations, and possible syncope. He was in his usual state of health until yesterday morning when he had some increased belching and bloating sensation after waking up and he decided not to eat any breakfast and did not take his medications this morning. Patient went to cardiac rehab this morning despite feeling more weak than normal. He states that when he arrived at cardiac rehab his BP was 122/64. He lifted weights and then went on the treadmill for about 25 minutes but did feel weak and tired so he quit. He went to the locker room where he felt dizzy and more weak and he vomited. Pt thinks he may have passed out but it is not clear. When EMS arrived, he was reportedly hypotensive with BP in the 70s/40s and hypoxic at 86% on room air. The patient was given NS 500 ml bolus via EMS and started on supplemental O2 at 6L. Per the ED documentation, the EMS stated that he did not have a syncopal episode, but the patient is unsure. The staff at cardiac rehab gave him glucose pills but did not check his glucose. He does not have any history of diabetes, his last Hgb A1C was 5.3% in 10/2017. He denies any headache, visual changes, chest pain, SOB. He occasionally gets some lightheadedness. He has last approximately 45lbs over the last year to year in a half, intentionally, and his started on weight watchers. He typically does drink a lot of liquids but did not eat or drink anything today. He has not had any recent changes in his urination. Vitals at cardiac rehab have been normal recently. He denies any recent chest pain, palpitation, PND, orthopnea, or dyspnea. Some slight cough for 1 day now. Work up thus far reveals essentially normal admitting laboratories aside from mild KARISSA on CKD with Cr 2.1. His WBC count has risen to 14.9 from 7K with a left shift since arrival in lieu of IVF resuscitation. CXR yesterday was read with no acute pulmonary process and repeat CXR today shows slight bibasilar opacities. VQ scan was low probability. ECG shows AV biventricular paced rhythm. Overnight, he has had hypotension and cardiac medications have been held. Currently patient feels well with no complaints. Review of Systems All other systems reviewed negative except as stated in HPI [facility] - History History Provided By: Patient - Medical History Medical History: Medical History (Last Updated 02/18/18 @ 11:58 by Arielle Stewart RN) High cholesterol Pacemaker - Surgical History Surgical History: Surgical History (Last Updated 02/18/18 @ 11:58 by Arielle Stewart RN) Stented coronary artery - Tobacco History Second Hand Smoke Exposure: No Tobacco Use In Past 30 Days: No Smoking Status: Former smoker Tobacco Type: Cigarettes - Alcohol History How Often Do You Have a Drink Containing Alcohol: Never - Substance Use History Substance History: No History of Abuse - Travel History Recent Travel in the [place] Within the Last 8 Weeks: No Recent Travel Out of the Country Within the Last 8 Weeks: No - Immunization History Tetanus Immunization: Unsure Medications and Allergies Active Medications: Active Medications Acetaminophen (Tylenol) 650 mg PO Q4H PRN PRN Reason: Temp > 100.4 Al Hydroxide/Mg Hydroxide (Milk Of Rodrigo Avelar) 30 ml PO Q12H PRN PRN Reason: Mild Constipation Amiodarone HCl (Cordarone) 200 mg PO DAILY [facility] Aspirin (Aspirin Chew) 81 mg PO DAILY [facility] Pravastatin Sodium (Pravachol) 40 mg PO DAILY [facility] Senna/Docusate Sodium (Leatha-Colace) 1 tab PO BID [facility] Last Admin: 02/18/18 20:35 Dose: Not Given Allergies Allergy/AdvReac Type Severity Reaction Status Date / Time gemfibrozil Allergy Severe hives Verified 02/18/18 15:32 Home Medications Medication Instructions Recorded Confirmed Type amiodarone 200 mg PO DAILY 02/18/18 02/18/18 History aspirin 81 mg PO DAILY 02/18/18 02/18/18 History carvedilol 25 mg PO BID 08/24/18 08/24/18 History enalapril maleate 20 mg PO BID 02/18/18 02/18/18 History pravastatin 40 mg PO DAILY 02/18/18 02/18/18 History Exam Vital signs: Vital Signs 02/18/18 11:59 02/18/18 12:10 02/18/18 13:02 Temperature 97.5 F L Pulse Rate 60 60 Respiratory Rate 19 17 Blood Pressure 119/54 L 112/57 L Pulse Oximetry 96 95 95 02/18/18 16:25 02/18/18 18:23 02/18/18 19:22 Temperature Pulse Rate 61 60 59 L Respiratory Rate 19 22 16 Blood Pressure 124/59 L 98/51 L 98/53 L Pulse Oximetry 97 98 98 02/18/18 20:00 02/18/18 23:54 02/19/18 00:59 Temperature 98.2 F 98.7 F Pulse Rate 60 60 Respiratory Rate 22 23 Blood Pressure 88/49 L 77/40 L 94/48 L Pulse Oximetry 94 L 93 L 02/19/18 01:35 02/19/18 04:00 02/19/18 04:30 Temperature 98.5 F Pulse Rate 60 Respiratory Rate 20 Blood Pressure 81/46 L 78/40 L Pulse Oximetry 93 L 96 02/19/18 08:00 Temperature 98.6 F Pulse Rate 60 Respiratory Rate 16 Blood Pressure 109/58 L Pulse Oximetry 95 Intake & Output 02/18/18 02/19/18 02/19/18 18:59 06:59 18:59 Intake Total 500 / 500 Balance 500 / 500 Weight 70.76 kg Intake: IV 500 / 500 Other: Date of Last Bowel Movement 02/18/18 Narrative: GENERAL: AO x 3 comfortable appearing. SKIN: Warm and dry. HEAD: Atraumatic. Normocephalic. EYES: Pupils equal and round. No scleral icterus. No injection or drainage. ENT: No nasal bleeding or discharge. Mucous membranes pink and moist. NECK: Trachea midline. No JVD. CARDIOVASCULAR: Regular rate and rhythm. AICD in left chest wall RESPIRATORY: No accessory muscle use. Clear to auscultation. Breath sounds equal bilaterally. GASTROINTESTINAL: Abdomen soft, non-tender, nondistended. Hepatic and splenic margins not palpable. MUSCULOSKELETAL: Extremities without clubbing, cyanosis, or edema. No obvious deformities. NEUROLOGICAL: Awake and alert. No obvious cranial nerve deficits. Normal speech. PSYCHIATRIC: Appropriate mood and affect; insight and judgment normal. Results 02/19/18 08:10 02/19/18 08:10 Cardiac Enzymes 02/18/18 02/18/18 02/18/18 Range/Units 12:20 12:20 19:15 AST 20 (15-37) U/L Troponin I 0.05 0.05 (0.02-0.05) ng/mL B-Natriuretic Peptide 108 H (0-100) pg/mL 02/19/18 Range/Units 00:06 AST (15-37) U/L Troponin I 0.04 (0.02-0.05) ng/mL B-Natriuretic Peptide (0-100) pg/mL Coagulation 02/18/18 02/18/18 Range/Units 12:20 12:20 PT 12.1 H (9.8-11.6) sec APTT 22.8 L (24.3-30.1) sec B-Natriuretic Peptide 108 H (0-100) pg/mL CBC 02/18/18 02/19/18 Range/Units 12:20 08:10 WBC 7.7 14.9 H D (4.0-11.0) th/mm3 RBC 4.05 L 3.75 L (4.50-5.90) mil/mm3 Hgb 13.4 12.2 L (13.0-17.0) gm/dL Hct 39.8 36.3 L (39.0-51.0) % Plt Count 188 149 L (150-450) th/mm3 Neut # (Auto) 6.3 11.9 H (1.8-7.7) th/mm3 Lymph # (Auto) 1.0 2.0 (1.0-4.8) th/mm3 Stevens # (Auto) 0.4 1.0 H (0.0-0.9) th/mm3 Eos # (Auto) 0.0 0.0 (0.0-0.4) th/mm3 Baso # (Auto) 0.0 0.0 (0.0-0.2) th/mm3 Comprehensive Metabolic Panel 02/18/18 02/19/18 Range/Units 12:20 08:10 Sodium 142 140 (136-145) meq/L Potassium 4.5 4.0 (3.5-5.1) meq/L Chloride 111 H 107 (98-107) meq/L Carbon Dioxide 22.3 25.2 (21.0-32.0) meq/L BUN 31 H 33 H (7-18) mg/dL Creatinine 2.13 H 1.98 H (0.60-1.30) mg/dL Calcium 7.6 L 8.1 L (8.5-10.1) mg/dL AST 20 (15-37) U/L ALT 26 (12-78) U/L Alkaline Phosphatase 62 (45-117) U/L Total Protein 6.2 L (6.4-8.2) g/dL Albumin 3.1 L (3.4-5.0) g/dL Intake and Output 02/18/18 02/19/18 02/19/18 22:59 06:59 14:59 Intake Total 500 / 500 Balance 500 / 500 Intake: IV 500 / 500 Other: Date of Last Bowel Movement 02/18/18 Assessment and Plan - Plan Here with vague symptoms of weakness and nausea and was found to have hypotension and transient hypoxemia and possible near syncope/syncope in this setting. Now with leukocytosis in lieu of IVF resuscitation for hypotension, recurrent hypotension overnight, and CXR today with interval development of bibasilar opacities. Suspect early sepsis with pulmonary source. Defer management to primary team. No acute cardiac issues at this time. Agree to hold home lisinopril and carvedilol in this setting and resume when BP and renal function normalize. Will sign off. please call for further questions.
[2018-02-19] MEDS: Amiodarone 200 MG Tablet PO SCH (14:52)
[2018-02-19] MEDS: Azithromycin Inj 500 MG in Sodium Chlor 0.9% Inj 250 ML IV.SIG SCH (14:53)
--- NOTE | 2018-02-19 17:19 | ECG ---
Date Performed: 02/18/2018 Time Performed: 11:53:49 PTAGE: 77 years EKG: ELECTRONIC ATRIAL PACEMAKER ELECTRONIC VENTRICULAR PACEMAKER ABNORMAL RHYTHM ECG PREVIOUS TRACING : 11/03/2008 12.42 DOCTOR: Ghazal Gomez Interpretating Date/Time 02/19/2018 17:17:54
[2018-02-20] MEDS: Amiodarone 200 MG Tablet PO SCH (08:35)
[2018-02-20] MEDS: Senna/Docusate Sodium 8.6/50 MG Tablet PO SCH ×2 (08:35→20:40)
--- NOTE | 2018-02-20 09:21 | P.PNIM ---
Subjective Interval history: No new complaints today Mild cough, nonproductive Afebrile BP are better overnight and this morning. Physical Exam Vital signs: Vital Signs 02/19/18 12:00 02/19/18 16:00 02/19/18 19:33 Temperature 98.6 F 98.1 F 98.6 F Pulse Rate 60 63 60 Respiratory Rate 16 14 16 Blood Pressure 110/59 L 94/55 L 120/57 L Pulse Oximetry 94 L 94 L 94 L 02/19/18 19:56 02/20/18 00:00 02/20/18 04:00 Temperature 98.6 F 98.2 F Pulse Rate 63 60 Respiratory Rate 18 14 Blood Pressure 121/64 118/62 Pulse Oximetry 96 93 L 94 L 02/20/18 08:00 Temperature 98.5 F Pulse Rate 60 Respiratory Rate 16 Blood Pressure 123/65 Pulse Oximetry 95 Intake & Output 02/19/18 02/20/18 02/20/18 18:59 06:59 18:59 Intake Total 100 / 100 1210 / 1210 Balance 100 / 100 1210 / 1210 Intake: IV 100 / 100 250 / 250 Azithromycin Inj 500 MG In NS 100 / 100 150 / 150 Inj 250 ML @ 250 mls/hr IV.SIG Q24H ELDA Rx#:[id number] Rocephin Inj 1,000 MG In NS Inj 100 / 100 100 ML @ 200 mls/hr IV.SIG Q24H ELDA Rx#:[id number] Oral 960 / 960 Other: # Voids 4 Date of Last Bowel Movement 02/18/18 02/18/18 Narrative: General: NAD, AAox3 Chest: CTA Cardiac: Regular Abd: +BS, soft ND/NT Ext: No edema Results - Labs CBC & Chem 7: 02/19/18 08:10 02/19/18 08:10 Laboratory Results - last 24 hr 02/19/18 02/19/18 08:10 08:10 WBC Differential Manual diff final Seg Neuts % (Manual) 74 H Band Neuts % (Manual) 8 H Lymphocytes % (Manual) 15 Monocytes % (Manual) 3 Abs Neuts (Manual) 12.2 H Platelet Estimate Normal Platelet Morphology Normal Sodium 140 Potassium 4.0 Chloride 107 Carbon Dioxide 25.2 Anion Gap 8 BUN 33 H Creatinine 1.98 H Estimated GFR 33 L Random Glucose 101 Calcium 8.1 L - Imaging Impressions Chest X-Ray 02/19/18 08:31 CONCLUSION: Bibasilar patchy densities could be atelectasis or infiltrates Assessment and Plan - Assessment (1) Syncope Code(s): R55 - Syncope and collapse Status: Acute Plan: Syncope Hypotension - Pt is a 77 y/o WM with CHF, ischemic cardiomyopathy s/p AICD, paroxysmal A. fib, CKD, stage 3, CAD with hx of [place]. - He presented to the ED at [facility] [place] [place] on 02/18/18 for evaluation of dizziness, hypotension, hypoxia, and possible syncope. This morning he had some increased belching and bloating sensation after waking up and he decided not to eat any breakfast and did not take his medications this morning. Patient went to cardiac rehab this morning despite feeling more weak than normal. He states that when he arrived at cardiac rehab his BP was 122/64. He lifted weights and then went on the treadmill for about 25 minutes but did feel weak and tired so he quit. He went to the locker room where he felt dizzy and more weak and he vomited. Pt thinks he may have passed out but it is not clear. When EMS arrived , he was reportedly hypotensive with BP in the 70s/40s and hypoxic at 86% on room air. The patient was given NS 500 ml bolus via EMS and started on supplemental O2 at 6L. - Head CT which was negative. - Telemetry - Appreciate consult from [facility] Cardiology - CE trended flat - His BP on 02/19, overnight, was low with systolic in the 70-90's. - Hold home meds - His labs on 02/19 noted a rise in his WBC count to 14.9. Blood cultures were drawn on 02/19 which are pending. - Pt was started on Azithromycin and Rocephin IV as there was concern for possible infection being the cause for the hypotension and reported cough. - Await repeat labs this morning. - Supportive care - DVT prophylaxis with SCDs Acute on CKD, stage 3 - Cr seems to be a bit higher than baseline (Cr 1.63/BUN 19, GFR 96 in 10/2017). - He has not had much of anything to eat or drink to but pt reports that normally he drinks plenty of fluids. - Pt was given 500mL fluid bolus by EMS and another 500mL of NS in the ED. - Given his hx of CHF and low EF we will not continue any further IVF but encouraged oral intake of fluids - Repeat labs on 02/19 with Improvement in Cr to 1.98 - Repeat labs in AM Hypoxia, resolved - Etiology unclear - Pt was able to be weaned off supplemental O2 during the night and is maintaining O2 sats on RA - CXR in the ED with no acute cardiopulmonary process per radiologist reading. - VQ scan was performed in the ED which was negative as well. - Pt with a reported cough for the last 1-2 weeks but not bringing up any phlegm. On Exam he had some rhonchi that seemed to clear with coughing. - Repeat CXR (02/19) --> Bibasilar patchy densities could be atelectasis or infiltrates - Pt was started on Azithromycin and Rocephin on 02/19 CAD with hx of [place] CHF, EF 25-30% in 2013 Ischemic Cardiomyopathy - Home BP meds on hold - Pt with intentional weight loss so his medication requirements have changed. (2) Hypoxia Code(s): R09.02 - Hypoxemia Status: Acute (3) Hypotension Code(s): I95.9 - Hypotension, unspecified Status: Acute (4) Acute renal failure superimposed on stage 3 chronic kidney disease Code(s): N17.9 - Acute kidney failure, unspecified; N18.3 - Chronic kidney disease, stage 3 (moderate) Status: Acute (5) Ischemic cardiomyopathy Code(s): I25.5 - Ischemic cardiomyopathy Status: Chronic (6) CHF (congestive heart failure) Code(s): I50.9 - Heart failure, unspecified Status: Chronic (7) CAD (coronary artery disease) Code(s): I25.10 - Atherosclerotic heart disease of [place] coronary artery without angina pectoris Status: Chronic (8) Paroxysmal A-fib Code(s): I48.0 - Paroxysmal atrial fibrillation Status: Chronic
[2018-02-20 10:35] LABS: Baso % (Auto) 0.1 % (0.0-2.0); Eos # (Auto) 0.1 th/mm3 (0.0-0.4); Hematocrit 37.9 % (39.0-51.0); Hemoglobin 12.6 gm/dL (13.0-17.0); Lymph # (Auto) 1.7 th/mm3 (1.0-4.8); Lymph % (Auto) 14.2 % (9.0-44.0); Mean Corpuscular HGB Conc 33.3 % (32.0-36.0); Mean Corpuscular Hemoglobin 32.8 pg (27.0-34.0); Mean Corpuscular Volume 98.5 fL (80.0-100.0); Mean Platelet Volume 9.9 fL (7.0-11.0); Mono % (Auto) 8.2 % (0.0-8.0); Neut # (Auto) 8.9 th/mm3 (1.8-7.7); Neut % (Auto) 76.5 % (16.0-70.0); Platelet Count 146 th/mm3 (150-450); Red Blood Count 3.85 mil/mm3 (4.50-5.90); Red Cell Distribution Width 13.3 % (11.6-17.2); White Blood Count 11.7 th/mm3 (4.0-11.0)
[2018-02-20] MEDS: Azithromycin Inj 500 MG in Sodium Chlor 0.9% Inj 250 ML IV.SIG SCH (12:39)
--- NOTE | 2018-02-20 12:58 | ECG ---
Date Performed: 02/18/2018 Time Performed: 19:12:12 PTAGE: 77 years EKG: ELECTRONIC ATRIAL PACEMAKER ELECTRONIC VENTRICULAR PACEMAKER ABNORMAL RHYTHM ECG Since the PREVIOUS TRACING , no significant change noted PREVIOUS TRACIN02/18/2018 11.53 DOCTOR: Stew Valero Interpretating Date/Time 02/20/2018 12:57:40
--- NOTE | 2018-02-20 21:43 | ECG ---
Date Performed: 02/18/2018 Time Performed: 22:28:52 PTAGE: 77 years EKG: ELECTRONIC ATRIAL PACEMAKER ELECTRONIC VENTRICULAR PACEMAKER ABNORMAL RHYTHM ECG PREVIOUS TRACING : 02/18/2018 19.12 Since the previous tracing, no significant change noted DOCTOR: Oc Schrader Interpretating Date/Time 02/20/2018 21:43:07
[2018-02-21 05:56] LABS: Baso % (Auto) 0.4 % (0.0-2.0); Eos # (Auto) 0.1 th/mm3 (0.0-0.4); Eos % (Auto) 1.6 % (0.0-4.0); Hematocrit 36.8 % (39.0-51.0); Hemoglobin 12.9 gm/dL (13.0-17.0); Lymph # (Auto) 1.7 th/mm3 (1.0-4.8); Lymph % (Auto) 20.8 % (9.0-44.0); Mean Corpuscular Hemoglobin 33.4 pg (27.0-34.0); Mean Corpuscular Volume 95.4 fL (80.0-100.0); Mean Platelet Volume 9.6 fL (7.0-11.0); Mono # (Auto) 0.8 th/mm3 (0.0-0.9); Mono % (Auto) 9.1 % (0.0-8.0); Neut # (Auto) 5.6 th/mm3 (1.8-7.7); Neut % (Auto) 68.1 % (16.0-70.0); Platelet Count 149 th/mm3 (150-450); Red Blood Count 3.86 mil/mm3 (4.50-5.90); White Blood Count 8.3 th/mm3 (4.0-11.0)
[2018-02-21 06:42] LABS: Calcium 8.6 mg/dL (8.5-10.1); Carbon Dioxide 27.7 meq/L (21.0-32.0); Potassium 4.2 meq/L (3.5-5.1)
[2018-02-21] MEDS: Azithromycin 250 MG Tablet PO SCH (08:40)
[2018-02-21] MEDS: Amiodarone 200 MG Tablet PO SCH (08:40)
[2018-02-21] MEDS: Senna/Docusate Sodium 8.6/50 MG Tablet PO SCH ×2 (08:42→21:13)
--- NOTE | 2018-02-21 16:32 | P.PNIM ---
Subjective Interval history: No new complaints. Pt is eager for discharge. Physical Exam Vital signs: 02/21/18 13:00 02/21/18 15:00 Temperature 98.0 F Pulse Rate 60 60 Respiratory Rate 18 Blood Pressure 122/69 Pulse Oximetry 96 Narrative: General: NAD, AAox3 Chest: CTA Cardiac: Regular Abd: +BS, soft ND/NT Ext: No edema Results - Labs CBC & Chem 7: 02/21/18 05:03 02/21/18 05:03 Microbiology 02/20/18 00:43 Blood - Peripheral Aerobic Blood Culture - Preliminary No growth in 1 day 02/20/18 00:43 Blood - Peripheral Anaerobic Blood Culture - Preliminary No growth in 1 day 02/19/18 13:23 Blood - Peripheral Aerobic Blood Culture - Preliminary No growth in 2 days 02/19/18 13:23 Blood - Peripheral Anaerobic Blood Culture - Preliminary No growth in 2 days - Imaging Head CT 02/18/18 12:10 CONCLUSION: Unremarkable study. Pulmonary Perfusion Imaging 02/18/18 13:36 CONCLUSION: 1. Negative examination. Chest X-Ray 02/19/18 08:31 CONCLUSION: Bibasilar patchy densities could be atelectasis or infiltrates Assessment and Plan - Assessment (1) Syncope Code(s): R55 - Syncope and collapse Status: Acute Plan: Syncope Hypotension - Pt is a 77 y/o WM with CHF, ischemic cardiomyopathy s/p AICD, paroxysmal A. fib, CKD, stage 3, CAD with hx of [place]. - He presented to the ED at [facility] [place]18[place]18 for evaluation of dizziness, hypotension, hypoxia, and possible syncope. This morning he had some increased belching and bloating sensation after waking up and he decided not to eat any breakfast and did not take his medications this morning. Patient went to cardiac rehab this morning despite feeling more weak than normal. He states that when he arrived at cardiac rehab his BP was 122/64. He lifted weights and then went on the treadmill for about 25 minutes but did feel weak and tired so he quit. He went to the locker room where he felt dizzy and more weak and he vomited. Pt thinks he may have passed out but it is not clear. When EMS arrived , he was reportedly hypotensive with BP in the 70s/40s and hypoxic at 86% on room air. The patient was given NS 500 ml bolus via EMS and started on supplemental O2 at 6L. - Head CT which was negative. - Telemetry - Appreciate consult from [facility] Cardiology - CE trended flat - His BP on 02/19, overnight, was low with systolic in the 70-90's. - SBP running around 120 - Case d/w primary It Security Manager, Dr. Tate (02/21/18) - continue to hold DEREK - resume coreg at 12.5mg BID - observe overnight - if pt remains stable, then will d/c to home 02/22 - Pt was started on Azithromycin and Rocephin IV as there was concern for possible infection being the cause for the hypotension and reported cough. - Supportive care - DVT prophylaxis with SCDs Acute on CKD, stage 3 - Cr seems to be a bit higher than baseline (Cr 1.63/BUN 19, GFR 96 in 10/2017). - He has not had much of anything to eat or drink to but pt reports that normally he drinks plenty of fluids. - Pt was given 500mL fluid bolus by EMS and another 500mL of NS in the ED. - Given his hx of CHF and low EF we will not continue any further IVF but encouraged oral intake of fluids - Repeat labs on 02/19 with Improvement in Cr to 1.98 - Repeat labs in AM Hypoxia, resolved - Etiology unclear - Pt was able to be weaned off supplemental O2 during the night and is maintaining O2 sats on RA - CXR in the ED with no acute cardiopulmonary process per radiologist reading. - VQ scan was performed in the ED which was negative as well. - Pt with a reported cough for the last 1-2 weeks but not bringing up any phlegm. On Exam he had some rhonchi that seemed to clear with coughing. - Repeat CXR (02/19) --> Bibasilar patchy densities could be atelectasis or infiltrates - Pt was started on Azithromycin and Rocephin on 02/19 CAD with hx of [place] CHF, EF 25-30% in 2013 Ischemic Cardiomyopathy - Home BP meds on hold - Pt with intentional weight loss so his medication requirements have changed. (2) Hypoxia Code(s): R09.02 - Hypoxemia Status: Acute (3) Hypotension Code(s): I95.9 - Hypotension, unspecified Status: Acute (4) Acute renal failure superimposed on stage 3 chronic kidney disease Code(s): N17.9 - Acute kidney failure, unspecified; N18.3 - Chronic kidney disease, stage 3 (moderate) Status: Acute (5) Ischemic cardiomyopathy Code(s): I25.5 - Ischemic cardiomyopathy Status: Chronic (6) CHF (congestive heart failure) Code(s): I50.9 - Heart failure, unspecified Status: Chronic (7) CAD (coronary artery disease) Code(s): I25.10 - Atherosclerotic heart disease of [place] coronary artery without angina pectoris Status: Chronic (8) Paroxysmal A-fib Code(s): I48.0 - Paroxysmal atrial fibrillation Status: Chronic
[2018-02-21] MEDS: Carvedilol 12.5 MG Tablet PO SCH (21:12)
[2018-02-22] MEDS: Amiodarone 200 MG Tablet PO SCH (08:53)
[2018-02-22] MEDS: Carvedilol 12.5 MG Tablet PO SCH (08:53)
[2018-02-22] MEDS: Azithromycin 250 MG Tablet PO SCH (08:53)
[2018-02-22] MEDS: Senna/Docusate Sodium 8.6/50 MG Tablet PO SCH (08:54)
--- NOTE | 2018-02-22 09:37 | P.DS ---
Date of admission: 02/18/18 16:15 Primary care physician: Shola Koch MD Attending physician on discharge: Jesus Malik Anticipated date of discharge: 02/22/18 Brief History from admission: Mr. Hidalgo is a pleasant 77 y/o WM with CHF, ischemic cardiomyopathy s/p AICD , paroxysmal A. fib, CKD, stage 3, CAD with hx of [place]. He presented to the ED at [facility] on 02/18/18 for evaluation of dizziness, hypotension, low oxygen saturations , and possible syncope. This morning he had some increased belching and bloating sensation after waking up and he decided not to eat any breakfast and did not take his medications this morning. Patient went to cardiac rehab this morning despite feeling more weak than normal. He states that when he arrived at cardiac rehab his BP was 122/64. He lifted weights and then went on the treadmill for about 25 minutes but did feel weak and tired so he quit. He went to the locker room where he felt dizzy and more weak and he vomited. Pt thinks he may have passed out but it is not clear. When EMS arrived, he was reportedly hypotensive with BP in the 70s/40s and hypoxic at 86% on room air. The patient was given NS 500 ml bolus via EMS and started on supplemental O2 at 6L. Per the ED documentation, the EMS stated that he did not have a syncopal episode, but the patient is unsure. The staff at cardiac rehab gave him glucose pills but did not check his glucose. He does not have any history of diabetes, his last Hgb A1C was 5.3% in 10/2017. He denies any headache, visual changes, chest pain , SOB. He occasionally gets some lightheadedness. He has last approximately 45lbs over the last year to year in a half, intentionally, and his started on weight watchers. He typically does drink a lot of liquids but did not eat or drink anything today. He has not had any recent changes in his urination. He does report that he used Sildenafil last night. He typically uses that about once per month but has not reported any issues taking that in the past and his BP when he arrived at cardiac rehab was stable this morning per the pt. In the ED pt had a Head CT which was negative. His Cr seems to be a bit higher than baseline. He has not had much of anything to eat or drink to but pt reports that normally he drinks plenty of fluids. Pt was given another 500mL of NS in the ED. His BP is currently stable with systolic in the 110's. His O2 sats have remained stable but pt is on 4L of supplemental O2. He does not typically use any supplemental O2 at home. CXR in the ED with no acute cardiopulmonary process per radiologist reading. A VQ scan was performed in the ED which was negative as well. Past Medical Hx: CHF CKD, stage 3(Cr 1.63/BUN 19, GFR 96 in 10/2017) Ischemic Cardiomyopathy, ED 25-30% in 2014 CAD with hx of [place] LBBB Paroxysmal A. fib Paroxysmal V. fib/V. tach Hx of colon polyps Past Surgical Hx: Dual chambered AICD placement in 2007 PTCA with stent placement in LAD in 2003 Angioplasty of RCA in 2002 Family Hx: Father at age 87, hx of prostate cancer Mother at age 78, HTN and CAD Sister at age 55, hx of brain CA Social Hx: Remote hx of tobacco use in high school Denies any alcohol or illicit drug use Pt is , he has three adult children Pt is originally from [place], moved to [place] in 1996. DS: Diagnosis - Discharge Diagnosis (1) Syncope Status: Acute (2) Hypoxia Status: Acute (3) Hypotension Status: Acute (4) Acute renal failure superimposed on stage 3 chronic kidney disease Status: Acute (5) Ischemic cardiomyopathy Status: Chronic (6) CHF (congestive heart failure) Status: Chronic (7) CAD (coronary artery disease) Status: Chronic (8) Paroxysmal A-fib Status: Chronic DS: Medications - Discharge Medications Prescriptions: azithromycin 250 mg PO DAILY #3 tab carvedilol [Coreg] 12.5 mg PO BID #60 tab DS: Summary Hospital Course: (1) Syncope Code(s): R55 - Syncope and collapse Status: Acute Plan: Syncope Hypotension - Pt is a 77 y/o WM with CHF, ischemic cardiomyopathy s/p AICD, paroxysmal A. fib, CKD, stage 3, CAD with hx of [place]. - He presented to the ED at [facility] on 02/18/18 for evaluation of dizziness, hypotension, hypoxia, and possible syncope. This morning he had some increased belching and bloating sensation after waking up and he decided not to eat any breakfast and did not take his medications this morning. Patient went to cardiac rehab this morning despite feeling more weak than normal. He states that when he arrived at cardiac rehab his BP was 122/64. He lifted weights and then went on the treadmill for about 25 minutes but did feel weak and tired so he quit. He went to the locker room where he felt dizzy and more weak and he vomited. Pt thinks he may have passed out but it is not clear. When EMS arrived , he was reportedly hypotensive with BP in the 70s/40s and hypoxic at 86% on room air. The patient was given NS 500 ml bolus via EMS and started on supplemental O2 at 6L. - Head CT which was negative. - Pt was observe on Telemetry - Appreciate consult from [facility] Cardiology - CE trended flat - His BP on 02/19, overnight, was low with systolic in the 70-90's. - SBP running around 120 - Case d/w primary Application Packaging Specialist, Dr. Tate (02/21/18) - continue to hold DEREK - resume coreg at 12.5mg BID - BP readings stable with coreg 12.5mg BID - Pt was started on Azithromycin and Rocephin IV as there was concern for possible infection being the cause for the hypotension and reported cough. - Pt to complete outpt course of PO azithromycin 250mg daily x 3d. - No QT prolongation seen on telemetry - Pt to f/u with PCP, Dr. Shola Koch in one week - Pt to f/u with Cardiology, Dr. Aron Tate in one week. Acute on CKD, stage 3 - Cr seems to be a bit higher than baseline (Cr 1.63/BUN 19, GFR 96 in 10/2017). - He has not had much of anything to eat or drink to but pt reports that normally he drinks plenty of fluids. - Pt was given 500mL fluid bolus by EMS and another 500mL of NS in the ED. - Given his hx of CHF and low EF we will not continue any further IVF but encouraged oral intake of fluids - Repeat labs on 02/19 with Improvement in Cr to 1.98 - Repeat labs in AM Hypoxia, resolved - Etiology unclear - Pt was able to be weaned off supplemental O2 during the night and is maintaining O2 sats on RA - CXR in the ED with no acute cardiopulmonary process per radiologist reading. - VQ scan was performed in the ED which was negative as well. - Pt with a reported cough for the last 1-2 weeks but not bringing up any phlegm. On Exam he had some rhonchi that seemed to clear with coughing. - Repeat CXR (02/19) --> Bibasilar patchy densities could be atelectasis or infiltrates - Pt was started on Azithromycin and Rocephin on 02/19 CAD with hx of [place] CHF, EF 25-30% in 2013 Ischemic Cardiomyopathy - Home BP meds on hold - Pt with intentional weight loss so his medication requirements have changed. (2) Hypoxia Code(s): R09.02 - Hypoxemia Status: Acute (3) Hypotension Code(s): I95.9 - Hypotension, unspecified Status: Acute (4) Acute renal failure superimposed on stage 3 chronic kidney disease Code(s): N17.9 - Acute kidney failure, unspecified; N18.3 - Chronic kidney disease, stage 3 (moderate) Status: Acute (5) Ischemic cardiomyopathy Code(s): I25.5 - Ischemic cardiomyopathy Status: Chronic (6) CHF (congestive heart failure) Code(s): I50.9 - Heart failure, unspecified Status: Chronic (7) CAD (coronary artery disease) Code(s): I25.10 - Atherosclerotic heart disease of [place] coronary artery without angina pectoris Status: Chronic (8) Paroxysmal A-fib Code(s): I48.0 - Paroxysmal atrial fibrillation Status: Chronic - Time Spent with Patient Total time spent providing and/or coordinating discharge services: Greater than 30 minutes - Quality: VTE Deep Vein Thrombosis/Pulmonary Embolism Present on Admission: No Exam Vital signs: Vital Signs 02/21/18 10:00 02/21/18 10:09 02/21/18 10:36 Temperature 97.8 F Pulse Rate 60 60 Respiratory Rate 18 Blood Pressure 115/69 Pulse Oximetry 94 L 96 02/21/18 12:00 02/21/18 13:00 02/21/18 15:00 Temperature 98.0 F Pulse Rate 60 60 60 Respiratory Rate 18 Blood Pressure 122/69 Pulse Oximetry 96 02/21/18 16:00 02/21/18 17:00 02/21/18 17:46 Temperature Pulse Rate 60 60 Respiratory Rate Blood Pressure Pulse Oximetry 96 02/21/18 19:00 02/21/18 20:00 02/21/18 21:00 Temperature 98 F Pulse Rate 60 60 60 Respiratory Rate 16 Blood Pressure 137/72 Pulse Oximetry 97 02/21/18 22:00 02/21/18 23:00 02/22/18 00:00 Temperature 98.2 F Pulse Rate 60 60 60 Respiratory Rate 16 Blood Pressure 112/87 Pulse Oximetry 95 02/22/18 01:00 02/22/18 02:00 02/22/18 03:00 Temperature 98.2 F Pulse Rate 60 60 60 Respiratory Rate 16 Blood Pressure 105/63 Pulse Oximetry 95 02/22/18 04:00 02/22/18 05:00 02/22/18 06:00 Temperature Pulse Rate 60 60 60 Respiratory Rate Blood Pressure Pulse Oximetry 02/22/18 07:00 02/22/18 07:21 02/22/18 08:00 Temperature 98.4 F Pulse Rate 60 60 60 Respiratory Rate 16 Blood Pressure 124/62 Pulse Oximetry 96 02/22/18 08:08 02/22/18 08:49 02/22/18 08:50 Temperature Pulse Rate Respiratory Rate Blood Pressure 173/88 H 146/71 H Pulse Oximetry 94 L Intake & Output 02/21/18 02/22/18 02/22/18 18:59 06:59 18:59 Intake Total 1060 / 1060 240 / 240 Output Total 220 / 220 Balance 1060 / 1060 20 / 20 Weight 71 kg Intake: IV 100 / 100 Rocephin Inj 1,000 MG In NS Inj 100 / 100 100 ML @ 200 mls/hr IV.SIG Q24H EDLA Rx#:[id number] Oral 960 / 960 240 / 240 Output: Urine 220 / 220 Other: # Voids 4 Date of Last Bowel Movement 02/21/18 02/21/18 02/21/18 Results Procedures completed during hospitalization: n/a Labs on day of discharge: Preliminary micro results at discharge 02/20/18 00:43 Aerobic Blood Culture - Preliminary Blood - Peripheral No growth in 1 day Anaerobic Blood Culture - Preliminary No growth in 1 day 02/19/18 13:23 Aerobic Blood Culture - Preliminary Blood - Peripheral No growth in 2 days Anaerobic Blood Culture - Preliminary No growth in 2 days - Impressions ITS Impressions Head CT 02/18/18 12:10 CONCLUSION: Unremarkable study. Pulmonary Perfusion Imaging 02/18/18 13:36 CONCLUSION: 1. Negative examination. Chest X-Ray 02/19/18 08:31 CONCLUSION: Bibasilar patchy densities could be atelectasis or infiltrates Discharge Plan - Discharge Disposition Patient Disposition: 01 Discharge Home - Discharge Condition Condition: Stable - Discharge Order Discharge Orders: Discharge Order (Routine); Ordered 02/22/18 Ordered By: Jesus Malik - Physicians Team Primary Care Provider: Shola Koch Attending Provider: Marcio Khan Other Providers: Jonas Mchugh DO
--- NOTE | 2018-02-23 21:57 | ECG ---
Date Performed: 02/22/2018 Time Performed: 09:53:54 PTAGE: 77 years EKG: DUAL CHAMBER PACEMAKER WITH APPROPRIATE CAPTURE Abnormal ECG PREVIOUS TRACING : 02/18/2018 22.28 Since the previous tracing, no significant change noted DOCTOR: Raymond Mckinley Interpretating Date/Time 02/23/2018 21:56:03
== END 2018-02-22 14:50 | disposition home or self-care (01) ==
LOC: NEDA 11:33 → NEPE 11:33 → NEDA 20:12 → NEPGCP 20:14 → HCPC 02-20 17:00
PROVIDERS: ADMIT Hospitalist; ATTEND Hospitalist